=== PATIENT | female | born 2000 | race American Indian/Alaskan Native ===

== ENCOUNTER 2021-02-02 15:14 | Emergency (ER) | payer SELFPAY ==
[~2021-02-02] VITALS: Ht 165.1 cm; Wt 81.8 kg
[2021-02-02 18:36] VITALS: BP 114/66; PULSE 66; TEMP 98.4
== END 2021-02-02 18:37 | disposition home or self-care (01) ==
LOC: COL.ER 15:14
DX: U07.1 COVID-19 (principal); Z87.891 Personal history of nicotine dependence

== ENCOUNTER 2021-08-06 15:08 | Emergency (ER) | payer SELFPAY ==
[~2021-08-06] VITALS: Ht 167.6 cm; Wt 79.5 kg
[2021-08-06 15:38] VITALS: TEMP 97.7
[2021-08-06 16:03] LABS: STREP SCREEN NEGATIVE
[2021-08-06 17:47] VITALS: BP 135/77; PULSE 77
== END 2021-08-06 17:52 | disposition home or self-care (01) ==
LOC: COL.ER 15:08
PROVIDERS: Emergency Medicine
DX: J02.9 Acute pharyngitis, unspecified (principal); Z20.822 Contact with and (suspected) exposure to COVID-19

== ENCOUNTER 2021-09-01 00:55 | Emergency (ER) | payer SELFPAY ==
[~2021-09-01] VITALS: Ht 167.6 cm; Wt 81.8 kg
[2021-09-01 01:25] VITALS: TEMP 98
[2021-09-01 02:10] VITALS: BP 115/63; PULSE 62
== END 2021-09-01 02:10 | disposition home or self-care (01) ==
LOC: COL.ER 00:55
DX: L50.9 Urticaria, unspecified (principal)

== ENCOUNTER 2022-10-23 19:54 | Emergency (ER) | payer OTHER ==
[2022-10-23 20:06] VITALS: TEMP 98.2
[2022-10-23 21:13] VITALS: BP 122/79; PULSE 73
== END 2022-10-23 21:13 | disposition home or self-care (01) ==
LOC: COL.ER 19:54
DX: S61.211A Laceration without foreign body of left index finger without damage to nail, initial encounter (principal); Z28.311 Partially vaccinated for COVID-19; W26.9XXA Contact with unspecified sharp object(s), initial encounter; Y93.G3 Activity, cooking and baking

== ENCOUNTER 2023-07-19 06:59 | Emergency (ER) | payer OTHER ==
[~2023-07-19] VITALS: Ht 165.1 cm; Wt 105.5 kg
[2023-07-19 07:05] VITALS: TEMP 97.5
[2023-07-19] MEDS ORDERED: ZOLOFT 50MG50 MG PO (07:08)
[2023-07-19 07:31] LABS: BASO % 0.4 % (0.0-2.0); EOS # 0.3 K/mm3 (0.0-0.7); GRAN # 6.1 K/mm3 (1.4-6.5); GRAN % 58.3 % (42.2-75.2); HEMOGLOBIN 12.3 g/dl (12.5-16.0); LYMPH # 3.4 K/mm3 (1.2-3.4); LYMPH % 32.1 % (20.0-51.0); MEAN CELL VOLUME 81 fl (80.0-100.0); MEAN CORPUSCULAR HEMOGLOBIN 26 pg (27-31); MEAN CORPUSCULAR HGB CONC 32 g/dl (33.0-37.0); MEAN PLATELET VOLUME 10.6 fl (7.4-10.4); MONO # 0.6 K/mm3 (0.1-0.6); MONO % 5.9 % (1.7-9.3); PLATELET COUNT 304 K/mm3 (130-400); RED BLOOD COUNT 4.79 M/mm3 (4.10-5.30); REDCELL DISTRIBUTION WIDTH-CV 15.1 % (11.5-14.5)
[2023-07-19 08:44] LABS: COLLECTION METHOD CLEAN CATCH
[2023-07-19 09:20] LABS: URINE APPEARANCE Clear (CLEAR/HAZY); URINE COLOR Yellow (YELLOW); URINE GLUCOSE Negative (NEGATIVE); URINE KETONE Negative (NEGATIVE); URINE NITRATE Negative (NEGATIVE); URINE PROTEIN(semi-quant) Negative (NEGATIVE); URINE UROBILINOGEN 0.2 E.U/dL (0.2-1.0)
[2023-07-19 09:21] LABS: URINE BACTERIA Rare /hpf (NONE SEEN); URINE BLOOD 3+ (NEGATIVE); URINE RBC 0-2 /hpf (0-2)
[2023-07-19 09:30] VITALS: BP 126/77; PULSE 47
[2023-07-19] MEDS ORDERED: NORCO 325 MG-51 TAB PO (09:30)
== END 2023-07-19 09:35 | disposition home or self-care (01) ==
LOC: COL.ER 06:59
PROVIDERS: Family Medicine
DX: R10.2 Pelvic and perineal pain (principal); R00.1 Bradycardia, unspecified